=== PATIENT | male | born 1985 ===

== ENCOUNTER 2016-11-11 17:51 | Emergency (ER) | payer OTHER ==
[2016-11-11 19:05] VITALS: BP 122/66; PULSE 64; RESP 16; TEMP 98.1; O2SAT 98
--- NOTE | 2016-11-11 19:17 | ED PDOC ---
Lower Extremity Pain/Injury Time Seen by Provider: 11/11/16 18:00 Chief Complaint (Nursing): Lower Extremity Problem/Injury Chief Complaint (Provider): left foot injury History Per: Patient History/Exam Limitations: no limitations Onset/Duration Of Symptoms: Mins (prior to arrival) Current Symptoms Are (Timing): Still Present Additional Complaint(s): Tylor Sotelo is a 31 year old male, with a previous medical history of asthma, who presents to the ED with complaints of left foot pain secondary to sustaining an injury at work. Pt reports a piece of glass feel on his foot which penetrated through the shoe. Pt denies any numbness or tingling to the foot. Pt reports last tetanus vaccination 3 years ago. Pt denies self medicating to alleviate the symptoms. No other medical complaints at this time. PMD: none provided Past Medical History Reviewed: Historical Data, Nursing Documentation, Vital Signs Vital Signs: Last Vital Signs Temp 98.1 F 11/11/16 18:18 Pulse 64 11/11/16 18:18 Resp 16 11/11/16 18:18 BP 122/66 11/11/16 18:18 Pulse Ox 98 11/11/16 18:18 - Medical History PMH: Asthma, Gastrointestinal Ulcer - Family History Family History: States: Unknown Family Hx - Home Medications Home Medications: Ambulatory Orders Medication Instructions Recorded Cephalexin [cephalexin] 500 mg PO BID #14 cap 11/11/16 oxyCODONE/Acetaminophen [Percocet 1 ea PO Q6H PRN #10 tab 11/11/16 5/325 mg Tab] - Allergies Allergies/Adverse Reactions: Allergies Allergy/AdvReac Type Severity Reaction Status Date / Time No Known Allergies Allergy Verified 11/11/16 18:05 Review of Systems ROS Statement: Except As Marked, All Systems Reviewed And Found Negative Musculoskeletal: Positive for: Foot Pain (left ), Other (left foot laceration) Neurological: Negative for: Numbness, Other (tingling ) Physical Exam - Reviewed Nursing Documentation Reviewed: Yes Vital Signs Reviewed: Yes - Physical Exam Appears: Positive for: Well, Non-toxic, No Acute Distress Head Exam: Positive for: ATRAUMATIC, NORMAL INSPECTION, NORMOCEPHALIC Skin: Positive for: Normal Color, Warm, Dry Cardiovascular/Chest: Positive for: Regular Rate, Rhythm Respiratory: Positive for: CNT, Normal Breath Sounds Extremity: Positive for: Normal ROM, Capillary Refill (< 2 seconds), Other (1.5 cm laceration to the dorsal aspect of the left foot. no ecchymosis). Negative for: Deformity, Swelling Neurologic/Psych: Positive for: Alert, Oriented. Negative for: Motor/Sensory Deficits - ECG O2 Sat by Pulse Oximetry: 98 (RA) Pulse Ox Interpretation: Normal Medical Decision Making Medical Decision Making: Initial Impression: left foot laceration Initial Plan: * left foot x-ray * podiatry consult * reevaluation Laceration repair by podiatry. Pt to follow-up in clinic in 2 weeks. They would like keflex at home. Scribe Attestation: Documented by Lakshmi Pena, acting as a scribe for Krupa Watson PA-C. Provider Scribe Attestation: All medical record entries made by the Scribe were at my direction and personally dictated by me. I have reviewed the chart and agree that the record accurately reflects my personal performance of the history, physical exam, medical decision making, and the department course for this patient. I have also personally directed, reviewed, and agree with the discharge instructions and disposition. Disposition - Clinical Impression Clinical Impression: Foot laceration - Patient ED Disposition Is Patient to be Admitted: No Counseled Patient/Family Regarding: Diagnosis, Need For Followup, Rx Given - Disposition Referrals: Podiatry Clinic [Outside] Disposition: Routine/Home Disposition Time: 20:40 Condition: GOOD Additional Instructions: Please follow-up at podiatry clinic in 2 weeks. Keep wound clean and dry with antibiotic ointment. Prescriptions: Cephalexin [cephalexin] 500 mg PO BID #14 cap oxyCODONE/Acetaminophen [Percocet 5/325 mg Tab] 1 ea PO Q6H PRN #10 tab PRN Reason: Pain, Severe (8-10) Instructions: Laceration (ED) Forms: [facility] ED School/Work Excuse
[2016-11-11] MEDS ORDERED: Lidocaine 1% Inj (20ml) ONE (19:42)
[2016-11-11] MEDS ORDERED: Lidocaine 1% Inj (20ml) INFIL STA (19:47)
--- NOTE | 2016-11-11 21:03 | CP.PCM.CON ---
History of Present Illness - History of Present Illness History of Present Illness: 31 year old male patient with PMHx of asthma was seen at bedside Ed after request for podiatry consultation. Patient presents with small laceration to dorsum of Left foot after dropping a piece of glass in top of his foot while moving a furniture this morning. Patient states that it happened around 9:00AM but had to wait for his work to be finished and came into ED this evening. Patient states that a glass piece went through top of this shoe and came right out. Patient states that he is able to wiggle all 5 of his toes. Patient is present with his mother and a brother. Patient denies of any N/V/F/C or SOB today Past Patient History - Infectious Disease Hx of Infectious Diseases: None - Past Social History Smoking Status: Light Smoker < 10 Cigarettes Daily - PULMONARY Hx Asthma: Yes - PSYCHIATRIC Hx Substance Use: No - SURGICAL HISTORY Hx Surgeries: No - ANESTHESIA Hx Anesthesia: No Meds Home Medications: Home Medication List Medication Instructions Recorded Confirmed Type Cephalexin [cephalexin] 500 mg PO BID #14 cap 11/11/16 Rx oxyCODONE/Acetaminophen [Percocet 1 ea PO Q6H PRN #10 tab 11/11/16 Rx 5/325 mg Tab] Allergies/Adverse Reactions: Allergies Allergy/AdvReac Type Severity Reaction Status Date / Time No Known Allergies Allergy Verified 11/11/16 18:05 Physical Exam - Constitutional Appears: Well, Non-toxic, No Acute Distress - Extremities Exam Additional comments: Left lower extremity exam DERM: Small laceration measuring 1cm in length noted to dorsum of Left mid foot. No sign of foreign body was noted upon visual examination. Dried blood noted from the wound. No active bleeding noted from the wound. No sign of infection is noted. VASC: Palpable DP and PT noted to Left foot 2/4. DP is palpated to LEFT foot both proximal and distal to the open wound at 2/4. 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 NEURO: Gross sensation intact ORTHO: pain on palpation to Left foot around the wound noted. Normal Active ROM is noted to MPJs of Left foot for all digits. . - Neurological Exam Neurological exam: Alert, Oriented x3 - Psychiatric Exam Psychiatric exam: Normal Affect, Normal Mood - Skin Skin Exam: Normal Color, Warm Results - Vital Signs Recent Vital Signs: Last Vital Signs Temp 98.1 F 11/11/16 18:18 Pulse 64 11/11/16 18:18 Resp 16 11/11/16 18:18 BP 122/66 11/11/16 18:18 Pulse Ox 98 11/11/16 20:42 Assessment & Plan - Assessment and Plan (Free Text) Assessment: 31 year old male patient presents with laceration wound to dorsum of Left foot measuring 1cm Plan: Patient was seen, evaluated and treated in ED labs and vitals reviewed discussed with attending Dr. Chapa Verbal consent was obtained for bedside suture of the laceration 4cc of 1% Lidocaine plain was injected around the wound In sterile manner, laceration was sutured with three simple stitches utilizing sterile 'Laceratin Kit' and 3-0 Prolene suture material Patient tolerated the procedure well Patient was given Rx for Keflex 500mg PO TID for 7 days Patient was advised to follow up with podiatry clinic in 2 weeks Patient was advised to call / come in to ED sooner if any problems occur Patient was advised to change dressing with sterile dressing materials ( purchased from medical store) everyday; keep dressing clean dry and intact
--- NOTE | 2016-11-12 12:12 | RAD ---
PROCEDURE: Left Foot Radiographs. HISTORY: Puncture injury COMPARISON: None. FINDINGS: BONES: Limited examination consists of only two views. No fracture identified. JOINTS: Normal. SOFT TISSUES: There are linear radio opacities overlying the calcaneal region of uncertain significance. . Please correlate with clinical evaluation. Site of puncture not demonstrated on this examination. OTHER FINDINGS: None. IMPRESSION: No fracture identified. Limited examination. Linear radio opacities seen calcaneal soft tissues, uncertain significance. Please correlate with clinical examination.
== END 2016-11-11 20:58 | disposition home or self-care (01) ==
LOC: H.ER 17:51
DX: S91.312A Laceration without foreign body, left foot, initial encounter (principal); W25.XXXA Contact with sharp glass, initial encounter; Y93.9 Activity, unspecified; Y92.9 Unspecified place or not applicable; Y99.0 Civilian activity done for income or pay

== ENCOUNTER 2016-11-18 08:35 | Emergency (ER) | payer OTHER ==
[2016-11-18 08:45] VITALS: BP 112/72; PULSE 69; TEMP 97.1; O2SAT 99
[2016-11-18 08:46] VITALS: BMI 29.6
--- NOTE | 2016-11-18 09:09 | ED PDOC ---
Lower Extremity Pain/Injury Time Seen by Provider: 11/18/16 09:01 Chief Complaint (Provider): foot redness History Per: Patient History/Exam Limitations: no limitations Onset/Duration Of Symptoms: Days (2) Current Symptoms Are (Timing): Still Present Additional Complaint(s): Pt. with redness to top of foot around his stitches. States mild pain there. No numbness, tingles. No weakness. Had stitches 1 week ago after a glass broke and gave him a cut. Podiatry sutured and had keflex started. He has been taking the medication and applying triple antibiotic ointment. Pt. states mild itching and pain to the site. No dc. No calf pain. No new injury. Past Medical History Vital Signs: Last Vital Signs Temp 97.1 F L 11/18/16 08:44 Pulse 69 11/18/16 08:44 Resp BP 112/72 11/18/16 08:44 Pulse Ox 99 11/18/16 08:44 - Medical History PMH: Asthma - Surgical History Surgical History: No Surg Hx - Family History Family History: States: Unknown Family Hx - Social History Alcohol: None Drugs: Denies - Home Medications Home Medications: Ambulatory Orders Medication Instructions Recorded Cephalexin [cephalexin] 500 mg PO BID #14 cap 11/11/16 oxyCODONE/Acetaminophen [Percocet 1 ea PO Q6H PRN #10 tab 11/11/16 5/325 mg Tab] Cephalexin [cephalexin] 500 mg PO BID 7 Days 11/18/16 - Allergies Allergies/Adverse Reactions: Allergies Allergy/AdvReac Type Severity Reaction Status Date / Time No Known Allergies Allergy Verified 11/18/16 09:03 Review of Systems Constitutional: Negative for: Weakness Cardiovascular: Negative for: Chest Pain Respiratory: Negative for: Cough, Shortness of Breath Musculoskeletal: Positive for: Foot Pain. Negative for: Neck Pain, Shoulder Pain, Arm Pain Skin: Positive for: Rash Neurological: Negative for: Weakness, Numbness, Dizziness Physical Exam - Reviewed Nursing Documentation Reviewed: Yes Vital Signs Reviewed: Yes - Physical Exam Appears: Positive for: Non-toxic, No Acute Distress Skin: Positive for: Rash Cardiovascular/Chest: Positive for: Regular Rate, Rhythm Respiratory: Positive for: Normal Breath Sounds Pulses-Dorsalis Pedis (L): 2+ Pulses-Dorsalis Pedis (R): 2+ Back: Positive for: Normal Inspection. Negative for: L CVA Tenderness, R CVA Tenderness Extremity: Positive for: Normal ROM, Tenderness (L dorsal foot with stitches in place (3); erythema mild blanching of 3cm diameter. Mild tender.) Neurologic/Psych: Positive for: Alert, Oriented - ECG O2 Sat by Pulse Oximetry: 99 - Progress ED Course And Treament: 913: Spoke with podiatry. Will see pt. in the ED. 1004: Stable. [id number] Guardado from podiatry saw pt. States is an allergic reaction and to stop the antibiotic ointment. Continue keflex for 1 more week and fu with clinic. Disposition - Clinical Impression Clinical Impression: Allergic reaction - Patient ED Disposition Is Patient to be Admitted: No Counseled Patient/Family Regarding: Diagnosis, Need For Followup, Rx Given - Disposition Referrals: Garfield Chapa DPM [Staff Provider] - 11/24/16 Disposition: Routine/Home Disposition Time: 10:02 Condition: STABLE Additional Instructions: Return if not better in 3 days. See the children counselor in 1 week. Stop using the ointment on your foot. Prescriptions: Cephalexin [cephalexin] 500 mg PO BID 7 Days Instructions: Urticaria (ED)
--- NOTE | 2016-11-18 09:55 | CP.PCM.CON ---
History of Present Illness - History of Present Illness History of Present Illness: 31 year old male patient with PMHx of asthma was seen at bedside Ed after request for podiatry consultation. Patient was present to ED last week with small laceration to dorsum of this Left foot after dropping a piece of glass while moving furnitures at work. Patient today presents with what appears to be an allergic reaction around the site of laceration, not associated with any drainage, wound dehiscence, nausea, vomiting, fever or chills. Patient states that he has been applying over the counter medication to the area for past couple of days. Patient states that the redness is localized in the shape of where he applied the medication to. He could not remember the name of the medication. Patient states that he has been changing dressing everyday and applied the medication everyday since his last visit here. Patient denies of any N/V/F/C or SOB today. Patient has an appointment with podiatry clinic next Thursday Past Patient History - Infectious Disease Hx of Infectious Diseases: None - Past Social History Alcohol: None Drugs: Denies - PULMONARY Hx Asthma: Yes - PSYCHIATRIC Hx Substance Use: No - SURGICAL HISTORY Hx Surgeries: No - ANESTHESIA Hx Anesthesia: No Meds Home Medications: Home Medication List Medication Instructions Recorded Confirmed Type Cephalexin [cephalexin] 500 mg PO BID 7 Days 11/18/16 Rx Allergies/Adverse Reactions: Allergies Allergy/AdvReac Type Severity Reaction Status Date / Time No Known Allergies Allergy Verified 11/18/16 09:03 Physical Exam - Constitutional Appears: Well, Non-toxic, No Acute Distress - Extremities Exam Additional comments: Left lower extremity exam DERM: Small laceration site to dorsum of Left foot appears well coapted with all suture intact. No dehiscence is noted, no drainage, no pus, no PTB. No maceration is noted to the site of suture. Erythema with pinpoint rash is noted to diffuse area of the suture, measuring 4cm x 4cm in diameter, consistent with allergic / dermatitis reaction. VASC: No edema noted. Palpable DP and PT noted to Left foot 2/4. DP is palpated to LEFT foot both proximal and distal to the open wound at 2/4. 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 NEURO: Gross sensation intact ORTHO: pain on palpation to Left foot around the wound noted. Normal Active ROM is noted to MPJs of Left foot for all digits. . - Neurological Exam Neurological exam: Alert, Oriented x3 - Psychiatric Exam Psychiatric exam: Normal Affect, Normal Mood - Skin Skin Exam: Normal Color, Warm Results - Vital Signs Recent Vital Signs: Last Vital Signs Temp 97.1 F L 11/18/16 08:44 Pulse 69 11/18/16 08:44 Resp BP 112/72 11/18/16 08:44 Pulse Ox 99 11/18/16 09:14 Assessment & Plan - Assessment and Plan (Free Text) Assessment: 31 year old male patient 1 week s/p 1cm laceration wound to dorsum of Left foot presents with allergic, dermatitis to dorsum of left foot around the site of laceration Plan: Patient was seen, evaluated and treated in ED labs and vitals reviewed discussed with attending Dr. Chapa Patient was instructed to stop using the ointment he was using Patient was given Rx for Keflex 500mg PO TID for 7 days Patient was given Rx for Bactroban with instruction to apply everyday with dressing change Patient was advised to follow up with podiatry clinic in 1 week Patient was advised to call / come in to ED sooner if any problems occur Patient was advised to change dressing with sterile dressing materials ( purchased from medical store) everyday; keep dressing clean dry and intact
== END 2016-11-18 10:20 | disposition home or self-care (01) ==
LOC: H.ER 08:35
DX: T36.8X5A Adverse effect of other systemic antibiotics, initial encounter (principal); Y92.9 Unspecified place or not applicable; Z48.817 Encounter for surgical aftercare following surgery on the skin and subcutaneous tissue

== ENCOUNTER 2016-11-24 11:43 | Emergency (ER) | payer OTHER ==
[2016-11-24 11:44] VITALS: BMI 29.6
[2016-11-24 12:18] VITALS: BP 112/68; PULSE 79; RESP 20; TEMP 98; O2SAT 97
--- NOTE | 2016-11-24 12:52 | ED PDOC ---
HPI: Wound Care - HPI Time Seen by Provider: 11/24/16 12:50 Chief Complaint (Nursing): Suture/Staple Removal Chief Complaint (Provider): Suture/Staple Removal History Per: Patient Exam Limitations: no limitations Onset/Duration Of Symptoms: Days Current Symptoms Are (Timing): Still Present Location Of Injury: Left: Foot Severity: Mild Additional Complaint(s): Patient is a 31 year old male who presents to ED for suture removal from left foot. Patient states sutures placed 15 days ago, evaluated 1 week ago for a rash and instructed to follow up with police cadet. Patient states he tried to follow up today but was unable too. Denies any pain, swelling, discharge or rash to the area Past Medical History Reviewed: Historical Data, Nursing Documentation, Vital Signs Vital Signs: Last Vital Signs Temp 98.0 F 11/24/16 12:17 Pulse 79 11/24/16 12:17 Resp 20 11/24/16 12:17 BP 112/68 11/24/16 12:17 Pulse Ox 97 11/24/16 12:17 - Medical History PMH: Asthma, Gastrointestinal Ulcer - Surgical History Surgical History: No Surg Hx - Family History Family History: States: No Known Family Hx, Unknown Family Hx - Home Medications Home Medications: Ambulatory Orders Medication Instructions Recorded Cephalexin [cephalexin] 500 mg PO BID #14 cap 11/11/16 oxyCODONE/Acetaminophen [Percocet 1 ea PO Q6H PRN #10 tab 11/11/16 5/325 mg Tab] Cephalexin [cephalexin] 500 mg PO BID 7 Days 11/18/16 - Allergies Allergies/Adverse Reactions: Allergies Allergy/AdvReac Type Severity Reaction Status Date / Time No Known Allergies Allergy Verified 11/24/16 12:17 Review of Systems Constitutional: Negative for: Fever, Chills Musculoskeletal: Positive for: Foot Pain Skin: Positive for: Other (sutures in place) Neurological: Negative for: Weakness, Numbness Physical Exam - Reviewed Nursing Documentation Reviewed: Yes Vital Signs Reviewed: Yes - Physical Exam Appears: Positive for: Non-toxic, No Acute Distress Skin: Positive for: Normal Color, Warm Eye Exam: Positive for: Normal appearance Neck: Positive for: Normal Pulses-Dorsalis Pedis (L): 2+ Extremity: Positive for: Normal ROM, Other (Sutures clean dry and in place to dorsum left foot(-) erythema ) Neurologic/Psych: Positive for: Alert, Oriented - ECG O2 Sat by Pulse Oximetry: 97 (RA) - Progress ED Course And Treament: seen by podiatry resident. Sutures removed by her. Medical Decision Making Medical Decision Making: Time: 1250 Initial impression: Suture Removal/Wound check Plan: -- Podiatry residents consulted will evaluate patient at bedside Attestation: Documented by Dominique Lebron acting as a scribe for Reny Alexandra PA-C. Provider Scribe Attestation: All medical record entries made by the Scribe were at my direction and personally dictated by me. I have reviewed the chart and agree that the record accurately reflects my personal performance of the history, physical exam, medical decision making, and the department course for this patient. I have also personally directed, reviewed, and agree with the discharge instructions and disposition. Disposition - Clinical Impression Clinical Impression: Removal of suture - Patient ED Disposition Is Patient to be Admitted: No - Disposition Referrals: Podiatry Clinic [Outside] Disposition: Routine/Home Disposition Time: 12:59 Condition: FAIR Instructions: Stitches Removal (ED)
--- NOTE | 2016-11-24 13:11 | CP.PCM.CON ---
History of Present Illness - History of Present Illness History of Present Illness: 31 year old male with PMHx of asthma was seen at bedside Ed after request for podiatry consultation. Patient was present to ED 2 weeks with small laceration to dorsum of this Left foot after dropping a piece of glass while moving furnitures at work. The laceration was sutured in the ED and patient was to follow up in Podiatry clinic today but somehow he ended up in the ED. Patient states that he has been changing dressing everyday. He denies any n/v/f/c/sob/ cp. Past Patient History - Infectious Disease Hx of Infectious Diseases: None - Past Social History Smoking Status: Light Smoker < 10 Cigarettes Daily - PULMONARY Hx Asthma: Yes - PSYCHIATRIC Hx Substance Use: No - SURGICAL HISTORY Hx Surgeries: No - ANESTHESIA Hx Anesthesia: No Meds Allergies/Adverse Reactions: Allergies Allergy/AdvReac Type Severity Reaction Status Date / Time No Known Allergies Allergy Verified 11/24/16 12:17 Physical Exam - Constitutional Appears: Well, Non-toxic, No Acute Distress - Extremities Exam Additional comments: Left lower extremity focused exam: VASC: Palpable DP and PT noted to Left foot 2/4. 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 DERM: Small laceration site noted to dorsum of Left foot appears well coapted with all suture intact. No dehiscence is noted, no drainage, no purulence noted.. No maceration is noted to the site of suture. Erythema with pinpoint rash is noted to diffuse area of the suture, measuring 3 cm x 3 cm in diameter, consistent with allergic/dermatitis reaction-resolving NEURO: Gross sensation intact ORTHO: No tenderness on palpation of laceration site. - Neurological Exam Neurological exam: Alert, Oriented x3 - Psychiatric Exam Psychiatric exam: Normal Affect, Normal Mood Results - Vital Signs Recent Vital Signs: Last Vital Signs Temp 98.0 F 11/24/16 12:17 Pulse 79 11/24/16 12:17 Resp 20 11/24/16 12:17 BP 112/68 11/24/16 12:17 Pulse Ox 97 11/24/16 13:00 Assessment & Plan - Assessment and Plan (Free Text) Assessment: 31 year old male patient 2 week s/p 1 cm laceration wound to dorsum of Left foot presents for suture removal Plan: Patient was examined and evaluated Chart and vitals reviewed Discussed with attending, Dr. Mcconnell Sutures were removed using a pickup and #11 blade Dressed with bandaid Patient was advised to follow up with podiatry clinic as needed Patient was advised to call / come in to ED sooner if any problems occur
== END 2016-11-24 13:16 | disposition home or self-care (01) ==
LOC: H.ER 11:43
DX: Z48.02 Encounter for removal of sutures (principal)